=== PATIENT | male | born 1945 | race Caucasian/White ===

== ENCOUNTER → 2021-03-19 | Outpatient (CLI) | payer MEDICARE, BC ==
--- NOTE | 2021-03-19 11:18 | CT ---
EXAMINATION TYPE: CT abdomen pelvis wo con DATE OF EXAM: 03/19/2021 COMPARISON: None INDICATION: Dhaval lower leg edema, renal cyst DLP: 2145.8 mGycm, Automated exposure control for dose reduction was used. CONTRAST: 0 mL of Isovue 300. Study performed with Oral Contrast TECHNIQUE: Axial images were obtained from above the diaphragm to the pubic rami in the axial plane a t 5 mm thick sections. Reconstructed images are reviewed on the computer in the coronal plane. FINDINGS: Limited CT sections are obtained the lung bases. The lung bases are clear. Coronary artery calcific ations present. CT ABDOMEN: Liver: Normal Spleen: Normal Pancreas: Normal Adrenal glands: The adrenal glands are normal. Gallbladder: Cholelithiasis Kidneys: No masses are evident. No hydronephrosis is present. There is a 2.9 cm cyst on the lateral right kidney. Delayed images were obtained through the kidneys, which remain unremarkable. Aorta: Vascular calcification is within the aorta. Inferior vena cava: Normal. CT PELVIS: Loops of bowel within the abdomen and pelvis are normal. There are loops of bowel which are incom pletely distended or lack oral contrast limiting their evaluation. Appendix: Normal as visualized. Urinary bladder: Normal. Genitourinary structures: Prostate calcifications present. Osseous structures: No suspicious lytic or sclerotic lesions are evident. IMPRESSIONS: 1. Cholelithiasis. 2. Right renal cyst.
== END | disposition home or self-care (01) ==
LOC: RADCTMAIN 08:09
PROVIDERS: ATTEND Physician Assistant Medical
DX: N28.1 Cyst of kidney, acquired (principal); K80.20 Calculus of gallbladder without cholecystitis without obstruction
CPT/HCPCS: 82565; 84520; 74176; 36415; Q9967

== ENCOUNTER → 2023-05-05 | Outpatient (CLI) | payer MEDICARE, BC | END | disposition home or self-care (01) | LOC: RADNMMAIN 07:36 | PROVIDERS: ATTEND Family Medicine | DX: Z53.9 Procedure and treatment not carried out, unspecified reason (principal) ==

== ENCOUNTER → 2023-05-30 | Outpatient (CLI) | payer MEDICARE, BC ==
--- NOTE | 2023-05-30 14:22 | CA ---
Stress Echo Report Ambrosio Morelos Age: 78 Gender: M : 1945 Exam Date: 05/30/2023 09:55 Exam Location: [facility] Ht (in): 69 Wt (lb): 277 Ordering Physician: Kandace Rice DO Referring Physician: Margaux Bentley Activities Aide: Jasmyn Curiel RDCS Technologist Procedure CPT: Indication: SOB Chest pain ICD-9 Codes: Rhythm: Patient History: Shortness of breath and vertigo Cardiac Medications: Medications in past 24 hours: Contrast: Definity Stress Results Protocol: Acosta Total dose(mL): 4 Exercise Duration (min:sec): 4:[address] Depression (mm): Angina Score: Avitia Score: METS: 5.6 Resting HR: 92 Resting BP: 128 / 64 Peak HR: 139 Peak BP: 149 / 53 Max Predicted HR: 144 97 % Max Predicted HR Target HR: 122 Double Product: [id number] Stress Summary: BP Response: Reason for Termination: Reached target heart rate or work-load Cardiac Symptoms: No Symptoms ECG Analysis Resting ECG: Stress ECG: Arrhythmia: Echo Analysis Resting Echo: Peak Echo Analysis: MEASUREMENTS (Male/Female) Normal Values CONCLUSIONS Patient underwent exercise stress echo with a Acosta protocol treadmill stress test. Patient exercised into Stage 2 for a total of 4 minutes and 7 seconds reaching a total of 5.6 METS. Patient's maximum heart rate was 139 which represented 96% age- predicted maximum heart rate. Stress EKG portion: At baseline patient's EKG showed normal sinus rhythm, normal axis, right bundle branch block with no significant ST or T wave abnormalities. At peak exercise, EKG showed significant change from baseline. Stress echo portion: 2-D echocardiogram was performed in the parasternal long, personal short, apical 2 and apical four-chamber views at rest, peak exercise and in recovery. At baseline, echocardiogram showed left ventricular ejection fraction 55% without wall motion abnormalities. With peak exercise, echocardiogram shows improvement in left ventricular ejection fraction, increase contractility, decrease in left ventricular end systolic dimension without wall motion abnormalities consistent with a normal response to exercise. Conclusions: 1. Normal EKG and echo response to exercise without evidence of inducible ischemia. 2. Poor exercise capacity. Dr. Shahid Gutierrez DO (Electronically Signed) Final Date: 30 May 2023 14:22
== END | disposition home or self-care (01) ==
LOC: RADNMMAIN 08:55
PROVIDERS: ATTEND Family Medicine
DX: R06.02 Shortness of breath (principal); R07.9 Chest pain, unspecified
CPT/HCPCS: 93351; Q9957